=== PATIENT | female | born 1955 | race African-American/Black ===

== ENCOUNTER 2022-09-05 20:45 | Emergency (ER) | payer OTHER ==
[2022-09-05 21:16] VITALS: RESP 18; TEMP 97.8; BMI 20.6
[2022-09-05 22:21] LABS: BASO % 0.8 % (0-2.0); EOS % 2.9 % (0-4.5); HEMATOCRIT 23.7 % (32.4-45.2); HEMOGLOBIN 7.6 GM/dL (10.7-15.3); LYMPH % 24.1 % (8-40); MCH 28.2 pg (25.7-33.7); MCHC 32.2 g/dl (32.0-36.0); MEAN CELL VOLUME 87.7 fl (80-96); MEAN PLT VOLUME 6.8 fl (7.5-11.1); MONO % 10.4 % (3.8-10.2); NEUT % 61.8 % (42.8-82.8); PLATELET COUNT 444 10^3/uL (134-434); RBC 2.71 M/mm3 (3.60-5.2); RDW 17.4 % (11.6-15.6); WHITE BLOOD COUNT 6.5 K/mm3 (4.0-10.0)
[2022-09-05 22:39] LABS: INR 1.03 (0.83-1.09)
[2022-09-05 22:41] LABS: ACTIVATED PTT 29.7 SECONDS (25.2-36.5)
[2022-09-05 23:02] LABS: CALCIUM 8.9 mg/dL (8.5-10.1)
[2022-09-05 23:03] LABS: ALBUMIN 3.3 g/dl (3.4-5.0); MAGNESIUM 1.9 mg/dL (1.8-2.4)
[2022-09-05 23:06] LABS: CREATININE 0.7 mg/dL (0.55-1.3)
[2022-09-05 23:07] LABS: BILIRUBIN,TOTAL 0.2 mg/dL (0.2-1); TOT PROT 6.4 g/dl (6.4-8.2)
[2022-09-06 01:44] VITALS: BP 91/51; PULSE 90
== END 2022-09-06 01:44 ==
LOC: JER 20:45
DX: R07.89 Other chest pain (principal); R06.02 Shortness of breath; Z20.822 Contact with and (suspected) exposure to COVID-19
CPT/HCPCS: 0241U-QW; 36415; 71045-TC-FY; 80053; 83735; 83880; 84484; 85025; 85610; 85730; 93005; 93010; 99285-25